=== PATIENT | male | born 1975 | race African-American/Black ===

== ENCOUNTER 2021-03-08 07:39 | Day surgery (SDC) | payer OTHER ==
[~2021-03-08] VITALS: Ht 175.3 cm; Wt 83.0 kg
[~2021-03-08 07:39] MED LIST: ASPIRIN81 MG PO; HYDROCHLOROT25 MG PO; LISINOPRIL20 MG PO
[2021-03-08 13:28] VITALS: BP 158/102
== END 2021-03-08 13:50 | DRG 355 ==
LOC: ORM 07:39
PROVIDERS: ATTEND Surgery
PROC: 0WQF0ZZ Repair Abdominal Wall, Open Approach (ICD-10-PCS; principal; 2021-03-08)
DX: K42.9 Umbilical hernia without obstruction or gangrene (principal); I10 Essential (primary) hypertension